=== PATIENT | male | born 1955 | race Caucasian/White ===

== ENCOUNTER 2020-08-25 15:42 | Inpatient (IN) | payer MEDICARE, OTHER ==
[~2020-08-25] VITALS: Ht 190.5 cm; Wt 98.0 kg
--- NOTE | 2020-08-25 15:49 | NUR ---
at bedside for assessment
--- NOTE | 2020-08-25 15:51 | NUR ---
Report given to Asiya, room 139 B
[2020-08-25] MEDS ORDERED: CHOL10005 PO (16:09)
[2020-08-25] MEDS ORDERED: POLY17PO4 PO (16:09)
[2020-08-25] MEDS ORDERED: FOLIC ACID PO (16:09)
[2020-08-25] MEDS ORDERED: SPIR100T5 PO (16:09)
[2020-08-25] MEDS ORDERED: PANT40TA49 PO (16:09)
[2020-08-25] MEDS ORDERED: FINA5TAB11 PO (16:09)
[2020-08-25] MEDS ORDERED: TAMS-3 PO (16:09)
[2020-08-25] MEDS ORDERED: CYAN-51 PO (16:09)
[2020-08-25] MEDS ORDERED: SOTA80TA PO (16:09)
[2020-08-25] MEDS ORDERED: TEMA30CA5 PO (16:09)
[2020-08-25] MEDS ORDERED: LACT10SO3 PO (16:09)
[2020-08-25] MEDS ORDERED: LEVO125T PO (16:09)
[2020-08-25] MEDS ORDERED: RIVA10TA PO (16:09)
[2020-08-25] MEDS ORDERED: FURO-151 PO (16:11)
[2020-08-25] MEDS ORDERED: DEXL60CA3 PO (16:11)
--- NOTE | 2020-08-25 16:29 | NUR ---
Pt. admitted to [facility]HU , under care of Dr. Mccall Belongs List completed and all belongings sent
[2020-08-25 16:30] VITALS: BP 121/79
--- NOTE | 2020-08-25 16:30 | NUR ---
PT ARRIVED TO UNIT ON W/C ACCOMPANIED BY RN. UPON FACE TO FACE EVALUATION, PT IS CALM AND COOPERATIVE, AOX4. PLEASANT AND RESPONSIVE TO ALL QUESTIONS. DENIES SUICIDAL IDEATIONS, STATES IT IS ALL A MISUNDERSTANDING. STATES HE TOOK 6 XANAX TO HELP HIM SLEEP, NOT AN ATTEMPT TO END HIS LIFE. STATES HE IS NOT DEPRESSED AND DOES NOT WANT TO HARM SELF. HE INCLUDED ALCOHOL WITH HIS MEDICATIONS TO "HELP THE EFFECTS" OF THE XANAX. PATIENTS RIGHTS HANDBOOK DELIVERED TO PT. NO AGGRESSIVE OR COMBATIVE BEHAVIOR NOTED. ABLE TO MAKE ALL NEEDS KNOWN.
[2020-08-25] MEDS ORDERED: ACETAMINOPHEN 325 MG TABLET PO PRN (16:45)
[2020-08-25] MEDS ORDERED: TEMAZEPAM 7.5 MG CAPSULE PO PRN (16:45)
[2020-08-25] MEDS ORDERED: MAG HYDROX/AL HYDROX/SIMETH 30 ML LIQUID UDC PO PRN (16:45)
[2020-08-25] MEDS ORDERED: RIVAROXABAN 10 MG TABLET PO SCH (18:00)
[2020-08-25] MEDS: MIRALAX 17 GM POWD.PACK PO SCH (18:14)
[2020-08-25] MEDS: RIVAROXABAN 10 MG TABLET PO SCH (18:15)
[2020-08-25] MEDS: SOTALOL HCL 80 MG TABLET PO SCH (18:15)
--- NOTE | 2020-08-25 19:00 | NUR ---
Patient left walking through the hallway. Alert and oriented times 4. No sign of distress noted. Patient denies SI and or ONEIL. All medications given as ordered. Safety precautions are in place. Will endorse to the oncoming nurse.
[2020-08-25] MEDS ORDERED: LINA145C PO (20:00)
[2020-08-25 20:03] VITALS: BP 114/63
[2020-08-25] MEDS: MAGNESIUM HYDROXIDE 30 ML LIQUID UDC PO PRN (20:42)
[2020-08-25] MEDS: TAMSULOSIN HCL 0.4 MG CAP.SR.24H PO SCH (20:42)
[2020-08-25] MEDS: TEMAZEPAM 7.5 MG CAPSULE PO PRN (20:42)
--- NOTE | 2020-08-25 21:00 | NUR ---
RECEIVED PT ON BED; PLEASANT; C/O CONSTIPATION AND WILL REQUIRE HIS LINZESS; INFORMED SOUND TESTER PATRICIA AND ORDERED IT; PT WILL BE GIVEN MILK OF MAGNESIA FOR NOW; NEEDS ATTENDED.
[2020-08-26] MEDS: LORAZEPAM 0.5 MG TABLET PO PRN ×3 (03:14→23:06)
--- NOTE | 2020-08-26 03:30 | NUR ---
Manjeet complained of being anxious; having SOB and bad dream; ativan PRN given PO.
--- NOTE | 2020-08-26 06:00 | NUR ---
pt swabbed nares for mrsa; urine sent also to lab.
[2020-08-26] MEDS: LEVOTHYROXINE SODIUM 125 MCG TABLET PO SCH (06:15)
[2020-08-26] MEDS: PANTOPRAZOLE SODIUM 40 MG TABLET.DR PO SCH (06:15)
[2020-08-26 06:25] LABS: *BILIRUBIN,URIN NEGATIVE (NEGATIVE); *BLOOD, URINE NEGATIVE (NEGATIVE); *CLARITY,URINE CLEAR (CLEAR); *COLOR,URINE YELLOW (YELLOW); *KETONES,URINE NEGATIVE (NEGATIVE); *UROBILINOGEN,URINE 0.2 E.U./dl (NORMAL); LEUKOCYTE ESTERASE ,URINE NEGATIVE (NEGATIVE); NITRITE, URINE NEGATIVE (NEGATIVE); PH,URINE 7.5 (5.0-8.0); UGLUCOSE NEGATIVE (NEGATIVE)
[2020-08-26 06:54] LABS: BASOPHILS % (AUTO) 0.5 % (0.0-2.0); EOSINOPHILS # (AUTO) 0.1 K/uL (0.0-0.7); EOSINOPHILS % (AUTO) 2.2 % (0.0-7.0); HEMATOCRIT 38.5 % (36.7-47.1); HEMOGLOBIN 13.2 g/dL (12.5-16.3); LYMPHOCYTES # (AUTO) 0.9 K/uL (20.0-40.0); LYMPHOCYTES % (AUTO) 16.3 % (20.5-51.5); MEAN CORPUSCULAR HEMOGLOBIN 32.8 uug (23.8-33.4); MEAN CORPUSCULAR HGB CONC 34 g/dL (32.5-36.3); MEAN CORPUSCULAR VOLUME 95.9 fL (73.0-96.2); MONOCYTES # (AUTO) 0.5 K/uL (2.0-10.0); MONOCYTES % (AUTO) 9.6 % (0.0-11.0); NEUTROPHILS # (AUTO) 3.8 K/uL (1.8-8.9); NEUTROPHILS % (AUTO) 71.4 % (38.5-71.5); PLATELET COUNT (AUTO) 248 K/uL (152-348); RED BLOOD CELL COUNT(AUTO) 4.02 MIL/uL (4.06-5.63); WHITE BLOOD COUNT (AUTO) 5.4 K/uL (3.6-10.2)
--- NOTE | 2020-08-26 06:55 | NUR ---
spoke to pt's caregiver, Veronica regarding Linzess; she will come to the hospital and drop off the medication to security.
[2020-08-26 07:12] LABS: BILIRUBIN,TOTAL 0.8 mg/dL (0.2-1.0); MAGNESIUM 1.9 mg/dL (1.8-2.4); PHOSPHOROUS 3.2 mg/dL (2.5-4.9); POTASSIUM 4.6 mmol/L (3.5-5.1); TOTAL PROTEIN, SERUM 6.4 g/dL (6.4-8.2)
[2020-08-26 07:30] VITALS: BP 123/68
[2020-08-26] MEDS: MIRALAX 17 GM POWD.PACK PO SCH ×2 (08:31→16:48)
[2020-08-26] MEDS: CYANOCOBALAMIN 1,000 MCG TABLET PO SCH (08:32)
[2020-08-26] MEDS: SOTALOL HCL 80 MG TABLET PO SCH ×2 (08:32→16:48)
[2020-08-26] MEDS: FUROSEMIDE 40 MG TABLET PO SCH (08:33)
[2020-08-26] MEDS: CHOLECALCIFEROL 1,000 UNIT TABLET PO SCH (08:33)
[2020-08-26] MEDS: FINASTERIDE 5 MG TABLET PO SCH (08:33)
[2020-08-26] MEDS: FOLIC ACID 1 MG TABLET PO SCH (08:33)
[2020-08-26] MEDS: SPIRONOLACTONE 50 MG TABLET PO SCH (08:34)
[2020-08-26 08:40] LABS: THYROID STIMULATING HORMONE 0.905 mIU/mL (0.358-3.740)
[2020-08-26] MEDS ORDERED: Medication Not On Formulary EA ([Folic Acid] 1 MG) PO SCH (09:00)
[2020-08-26] MEDS ORDERED: SPIRONOLACTONE 100 MG TABLET PO SCH (09:00)
[2020-08-26] MEDS ORDERED: Medication Not On Formulary EA (Cholecalciferol (Vitamin D3) (Vitamin D3) 2 TAB) PO SCH (09:00)
--- NOTE | 2020-08-26 13:04 | NUR ---
Firearms Report: Neon Tube Bender completed and submitted a [employer] firearms report for 5150 grave disability certification. A copy of report has been placed in patient chart.
[2020-08-26] MEDS: LINZESS 290 MCG CAP PO SCH (13:14)
--- NOTE | 2020-08-26 13:59 | NUR ---
Family Contact: This SW contacted patient's caregiver Veronica ([phone]) to gather collateral and discuss treatment plan.
--- NOTE | 2020-08-26 13:59 | NUR ---
Initial Discharge Plan: Patient currently lives at [id number] [place] [address]. Patient's caregiver Veronica ([phone]) is involved in patient's care who takes care of pt everyday. Patient would want to return back home upon discharge. This SW contacted patient's caregiver Veronica ([phone]) to gather collateral and discuss treatment plan. This SW will work with the MD and treatment team to gather information.
--- NOTE | 2020-08-26 14:14 | NUR ---
SW Substance Abuse Intervention: Patient was provided with a brief substance abuse intervention and referred to [facility] ([phone]), [facility] ([phone]), and [facility] ([phone]).
--- NOTE | 2020-08-26 14:51 | NUR ---
Individual Therapy: flavor room worker met with patient for brief counseling and assessed for level of suicidality. flavor room worker assessed for suicidal thoughts, patient denied suicidal thoughts. He expressed that he was "brought here and that he did not intentionally overdose, he just took the medications because he was bored". Patient expressed that he is in a "good mood and has a lot of support at home". He shared that his caregiver helps him at home. SW actively listened and provided emotional support.
[2020-08-26 15:09] VITALS: BP 132/76
[2020-08-26] MEDS: ESCITALOPRAM OXALATE 10 MG TABLET NG SCH (16:42)
[2020-08-26] MEDS: RIVAROXABAN 10 MG TABLET PO SCH (17:15)
[2020-08-26 20:00] VITALS: BP 118/67
[2020-08-26] MEDS: TAMSULOSIN HCL 0.4 MG CAP.SR.24H PO SCH (20:21)
[2020-08-26] MEDS: TEMAZEPAM 7.5 MG CAPSULE PO PRN (21:17)
[2020-08-27] MEDS: LEVOTHYROXINE SODIUM 125 MCG TABLET PO SCH (06:03)
[2020-08-27] MEDS: PANTOPRAZOLE SODIUM 40 MG TABLET.DR PO SCH (06:03)
--- NOTE | 2020-08-27 06:45 | NUR ---
Received Pt pacing the hallway, appearing anxious. A+Ox3 and friendly on approach. Pt reported 8/10 anxiety due to "all of the constant noise and yelling in here, I can't think straight." Pt was reminded his next prn Ativan is due at 2300. Pt denies SI and minimizes his actions prior to admission, and stated, "I just wanted to get some sleep, they twisted my words all around, I wasn't suicidal." Pt admits to "some depression and anxiety" Verbally contracts for safety, compliant with medications, cooperative with care and staff direction. Exhibits flat affect and low mood. VS stable, denies pain. Restoril 7.5mg administered for insomnia with minimal effect. Pt was up throughout the night pacing and frequently requesting benzo medications. Medication education and safety reinforced.
[2020-08-27 07:29] LABS: CREATININE 0.9 mg/dL (0.6-1.3); MAGNESIUM 1.7 mg/dL (1.8-2.4); PHOSPHOROUS 3.8 mg/dL (2.5-4.9); POTASSIUM 4.2 mmol/L (3.5-5.1)
[2020-08-27 07:30] VITALS: BP 126/79
[2020-08-27] MEDS: LORAZEPAM 0.5 MG TABLET PO PRN ×2 (07:38→23:27)
[2020-08-27 08:17] LABS: URIC ACID 3.3 mg/dL (3.5-7.2)
[2020-08-27] MEDS: MIRALAX 17 GM POWD.PACK PO SCH ×2 (08:39→16:56)
[2020-08-27] MEDS: CHOLECALCIFEROL 1,000 UNIT TABLET PO SCH (08:40)
[2020-08-27] MEDS: FUROSEMIDE 40 MG TABLET PO SCH (08:40)
[2020-08-27] MEDS: CYANOCOBALAMIN 1,000 MCG TABLET PO SCH (08:41)
[2020-08-27] MEDS: FOLIC ACID 1 MG TABLET PO SCH (08:41)
[2020-08-27] MEDS: FINASTERIDE 5 MG TABLET PO SCH (08:41)
[2020-08-27] MEDS: ESCITALOPRAM OXALATE 10 MG TABLET NG SCH (08:41)
[2020-08-27] MEDS: SPIRONOLACTONE 50 MG TABLET PO SCH (08:41)
[2020-08-27] MEDS: SOTALOL HCL 80 MG TABLET PO SCH ×2 (08:41→16:56)
[2020-08-27] MEDS: LINZESS 290 MCG CAP PO SCH (11:11)
[2020-08-27] MEDS ORDERED: MAGNESIUM OXIDE 400 MG TABLET PO ONE (12:00)
[2020-08-27 16:00] VITALS: BP 95/61
[2020-08-27] MEDS ORDERED: TEMAZEPAM 7.5 MG CAPSULE PO PRN (16:15)
[2020-08-27] MEDS: RIVAROXABAN 10 MG TABLET PO SCH (18:10)
[2020-08-27] MEDS: TAMSULOSIN HCL 0.4 MG CAP.SR.24H PO SCH (20:12)
[2020-08-27 21:08] VITALS: BP 105/72
[2020-08-28] MEDS: PANTOPRAZOLE SODIUM 40 MG TABLET.DR PO SCH (06:30)
[2020-08-28] MEDS: LEVOTHYROXINE SODIUM 125 MCG TABLET PO SCH (06:30)
[2020-08-28 07:53] VITALS: BP 131/80
[2020-08-28] MEDS: ESCITALOPRAM OXALATE 10 MG TABLET NG SCH (08:02)
[2020-08-28] MEDS: FUROSEMIDE 40 MG TABLET PO SCH (08:02)
[2020-08-28] MEDS: SPIRONOLACTONE 50 MG TABLET PO SCH (08:02)
[2020-08-28] MEDS: SOTALOL HCL 80 MG TABLET PO SCH ×2 (08:02→17:12)
[2020-08-28] MEDS: MIRALAX 17 GM POWD.PACK PO SCH ×2 (08:02→17:12)
[2020-08-28] MEDS: FOLIC ACID 1 MG TABLET PO SCH (08:03)
[2020-08-28] MEDS: FINASTERIDE 5 MG TABLET PO SCH (08:03)
[2020-08-28] MEDS: CYANOCOBALAMIN 1,000 MCG TABLET PO SCH (08:03)
[2020-08-28] MEDS: CHOLECALCIFEROL 1,000 UNIT TABLET PO SCH (08:04)
[2020-08-28 10:53] LABS: CREATININE 1.1 mg/dL (0.6-1.3)
[2020-08-28] MEDS: LINZESS 290 MCG CAP PO SCH (11:27)
--- NOTE | 2020-08-28 15:15 | NUR ---
patient is anxious, guarded, and withdrawn, but is cooperative and redirectable. he appears appropriately dressed in hospital gown. patient denies SI/HI, denies AH/VH, he is minimizing reason for admission and is preoccupied with being discharged. patient provided with education about involuntary hold status and reason for admission. patient is adherent with medication, no adverse reaction noted. patient able to ambulate and perform self care and ADL's independently.
[2020-08-28 16:00] VITALS: BP 123/73
[2020-08-28] MEDS ORDERED: MAGNESIUM OXIDE 400 MG TABLET PO ONE (16:15)
[2020-08-28] MEDS: RIVAROXABAN 10 MG TABLET PO SCH (17:13)
[2020-08-28] MEDS: TAMSULOSIN HCL 0.4 MG CAP.SR.24H PO SCH (20:03)
[2020-08-28] MEDS: LORAZEPAM 0.5 MG TABLET PO PRN (20:17)
[2020-08-28 20:39] VITALS: BP 123/73
[2020-08-29] MEDS: LORAZEPAM 0.5 MG TABLET PO PRN (01:03)
[2020-08-29] MEDS: LEVOTHYROXINE SODIUM 125 MCG TABLET PO SCH (06:02)
[2020-08-29] MEDS: PANTOPRAZOLE SODIUM 40 MG TABLET.DR PO SCH (06:02)
[2020-08-29 07:14] LABS: CREATININE 1.1 mg/dL (0.6-1.3); POTASSIUM 4.3 mmol/L (3.5-5.1)
[2020-08-29 07:30] VITALS: BP 110/69
[2020-08-29] MEDS: SOTALOL HCL 80 MG TABLET PO SCH ×2 (08:52→17:40)
[2020-08-29] MEDS: CYANOCOBALAMIN 1,000 MCG TABLET PO SCH (08:53)
[2020-08-29] MEDS: CHOLECALCIFEROL 1,000 UNIT TABLET PO SCH (08:53)
[2020-08-29] MEDS: FOLIC ACID 1 MG TABLET PO SCH (08:53)
[2020-08-29] MEDS: SPIRONOLACTONE 50 MG TABLET PO SCH (08:54)
[2020-08-29] MEDS: FINASTERIDE 5 MG TABLET PO SCH (08:54)
[2020-08-29] MEDS: ESCITALOPRAM OXALATE 10 MG TABLET NG SCH (08:55)
[2020-08-29] MEDS: FUROSEMIDE 40 MG TABLET PO SCH (08:59)
[2020-08-29] MEDS: LINZESS 290 MCG CAP PO SCH (11:30)
[2020-08-29] MEDS: MIRALAX 17 GM POWD.PACK PO SCH ×2 (11:36→17:43)
--- NOTE | 2020-08-29 11:39 | NUR ---
Gps/Kitchenhand- Had been compliant with his routine am meds. Fluid restrictions observed and in progress, compliant with his fluid restrictions. Sodium 126 today. Showered self ind. after set up, patches of skin bruising noted. Had been redirectable. Veronica (Caregiver ) called wants to know how patient is doing, claimed she stays with patient 24 HR .
--- NOTE | 2020-08-29 14:52 | NUR ---
Individual Therapy: drug worker met with patient for brief counseling and assessed for level of suicidality. drug worker assessed for suicidal thoughts, patient denied suicidal thoughts. Patient expressed that he is "no longer feeling sad and that I need to go home to take care of things at home". This SW helped patient identify someone who can help him while at the hospital. He stated that he has a caregiver and will contact his caregiver to help him with the "things" he needs to take care of at home. This SW actively listened to patient and helped identify a support system. Patient's support system is his caregiver who takes care of him at home.
[2020-08-29 16:00] VITALS: BP 126/79
--- NOTE | 2020-08-29 16:14 | NUR ---
SW Coordination of Care: Patient will follow up with primary doctor Dr. Helga Collazo located at [address] [place] [address], [phone]; ([phone]) on September 04 between 3-5PM doctor office will contact patient and it will be telehealth. Primary doctor will manage the patients psychotropic medications and refer the patient to an outpatient psychiatrist for continued follow-ups. This SW arranged it through [employer] counter attendant.
[2020-08-29] MEDS: RIVAROXABAN 10 MG TABLET PO SCH (17:39)
--- NOTE | 2020-08-29 18:00 | NUR ---
Gps/Stair Builder- Compliant with his fluid restrictions, but verbalized concerns regarding his constipation, reassured, he is on routine miralax . Interacting well with his selected peers.
[2020-08-29] MEDS: TAMSULOSIN HCL 0.4 MG CAP.SR.24H PO SCH (20:19)
[2020-08-29 20:25] VITALS: BP 147/85
[2020-08-29] MEDS: ZOLPIDEM 5 MG TABLET PO PRN ×2 (22:09→23:10)
--- NOTE | 2020-08-29 23:10 | NUR ---
GPS: Pt.still awake at this time despite getting Ambien 5mg PO an hour ago for insomnia. Ambien 5mg (repeat dose) given. Will monitor effectiveness. Pt.getting paranoid and suspicious about his meds. Explained medication efficacy is not guaranteed. Quiet environment provided to facilitate sleep. Kept safe at all times.
[2020-08-30] MEDS: LORAZEPAM 0.5 MG TABLET PO PRN (03:01)
[2020-08-30] MEDS: LEVOTHYROXINE SODIUM 125 MCG TABLET PO SCH (06:31)
[2020-08-30] MEDS: PANTOPRAZOLE SODIUM 40 MG TABLET.DR PO SCH (06:31)
[2020-08-30 07:30] VITALS: BP 127/76
[2020-08-30] MEDS: FINASTERIDE 5 MG TABLET PO SCH (08:20)
[2020-08-30] MEDS: FOLIC ACID 1 MG TABLET PO SCH (08:20)
[2020-08-30] MEDS: SPIRONOLACTONE 50 MG TABLET PO SCH (08:20)
[2020-08-30] MEDS: CHOLECALCIFEROL 1,000 UNIT TABLET PO SCH (08:20)
[2020-08-30] MEDS: MIRALAX 17 GM POWD.PACK PO SCH ×2 (08:21→17:04)
[2020-08-30] MEDS: CYANOCOBALAMIN 1,000 MCG TABLET PO SCH (08:22)
[2020-08-30] MEDS: FUROSEMIDE 40 MG TABLET PO SCH (08:31)
[2020-08-30] MEDS: SOTALOL HCL 80 MG TABLET PO SCH ×2 (08:31→17:04)
[2020-08-30] MEDS ORDERED: ESCITALOPRAM OXALATE 10 MG TABLET PO ONE (09:00)
--- NOTE | 2020-08-30 09:46 | NUR ---
Family Contact: This SW contacted patient's caregiver Veronica ([phone]) and discussed patient's treatment and how patient has been doing.
[2020-08-30] MEDS: LINZESS 290 MCG CAP PO SCH (11:23)
--- NOTE | 2020-08-30 13:25 | NUR ---
[facility] Hearing: Patient had 5250 probable cause hearing today and it was upheld for danger to self.
--- NOTE | 2020-08-30 13:26 | NUR ---
Family Contact: This SW contacted patient's caregiver Veronica ([phone]) and stated that patient's court hearing was today and it was upheld for danger to self. This SW notified patient will continue to be at the hospital for further treatment.
[2020-08-30] MEDS: MAGNESIUM HYDROXIDE 30 ML LIQUID UDC PO PRN (15:28)
[2020-08-30 16:35] VITALS: BP 147/82
[2020-08-30] MEDS: RIVAROXABAN 10 MG TABLET PO SCH (17:04)
[2020-08-30 20:49] VITALS: BP 108/65
[2020-08-30 20:51] VITALS: BP 153/57
[2020-08-30] MEDS: TAMSULOSIN HCL 0.4 MG CAP.SR.24H PO SCH (21:45)
[2020-08-30] MEDS: ZOLPIDEM 5 MG TABLET PO PRN (21:45)
[2020-08-31] MEDS: LORAZEPAM 0.5 MG TABLET PO PRN ×4 (00:18→20:53)
--- NOTE | 2020-08-31 05:29 | NUR ---
Patient slept 5.45 hours. Complaint to treatment.
[2020-08-31] MEDS: PANTOPRAZOLE SODIUM 40 MG TABLET.DR PO SCH (06:13)
[2020-08-31] MEDS: LEVOTHYROXINE SODIUM 125 MCG TABLET PO SCH (06:14)
[2020-08-31] MEDS: MAGNESIUM HYDROXIDE 30 ML LIQUID UDC PO PRN (06:53)
[2020-08-31 07:30] VITALS: BP 124/77
[2020-08-31 08:05] LABS: CREATININE 1.2 mg/dL (0.6-1.3); POTASSIUM 5.1 mmol/L (3.5-5.1)
[2020-08-31 08:06] LABS: BASOPHILS % (AUTO) 0.4 % (0.0-2.0); EOSINOPHILS # (AUTO) 0.1 K/uL (0.0-0.7); EOSINOPHILS % (AUTO) 1.2 % (0.0-7.0); HEMATOCRIT 38.5 % (36.7-47.1); HEMOGLOBIN 13.4 g/dL (12.5-16.3); LYMPHOCYTES # (AUTO) 0.9 K/uL (20.0-40.0); LYMPHOCYTES % (AUTO) 13.6 % (20.5-51.5); MEAN CORPUSCULAR HEMOGLOBIN 32.9 uug (23.8-33.4); MEAN CORPUSCULAR HGB CONC 35 g/dL (32.5-36.3); MEAN CORPUSCULAR VOLUME 94.4 fL (73.0-96.2); MONOCYTES # (AUTO) 0.6 K/uL (2.0-10.0); MONOCYTES % (AUTO) 9.3 % (0.0-11.0); NEUTROPHILS # (AUTO) 5.2 K/uL (1.8-8.9); NEUTROPHILS % (AUTO) 75.5 % (38.5-71.5); PLATELET COUNT (AUTO) 276 K/uL (152-348); RED BLOOD CELL COUNT(AUTO) 4.08 MIL/uL (4.06-5.63); WHITE BLOOD COUNT (AUTO) 6.9 K/uL (3.6-10.2)
[2020-08-31] MEDS: FOLIC ACID 1 MG TABLET PO SCH (08:38)
[2020-08-31] MEDS: CHOLECALCIFEROL 1,000 UNIT TABLET PO SCH (08:42)
[2020-08-31] MEDS: SPIRONOLACTONE 50 MG TABLET PO SCH (08:42)
[2020-08-31] MEDS: CYANOCOBALAMIN 1,000 MCG TABLET PO SCH (08:44)
[2020-08-31] MEDS: MIRALAX 17 GM POWD.PACK PO SCH ×2 (08:44→17:30)
[2020-08-31] MEDS: FINASTERIDE 5 MG TABLET PO SCH (08:44)
[2020-08-31] MEDS: SOTALOL HCL 80 MG TABLET PO SCH ×2 (08:59→17:25)
[2020-08-31] MEDS ORDERED: ESCITALOPRAM OXALATE 10 MG TABLET PO SCH ×2 (09:00→14:55)
[2020-08-31] MEDS: FUROSEMIDE 40 MG TABLET PO SCH (09:00)
[2020-08-31] MEDS ORDERED: MINERAL OIL FLEET ENEMA 133 ML BOTTLE RC ONE (11:15)
[2020-08-31] MEDS: LINZESS 290 MCG CAP PO SCH (11:23)
[2020-08-31] MEDS: SODIUM CHLORIDE 1,000 MG TABLET PO SCH ×2 (13:47→17:24)
[2020-08-31 15:17] VITALS: BP 100/68
[2020-08-31] MEDS: RIVAROXABAN 10 MG TABLET PO SCH (18:36)
[2020-08-31 20:00] VITALS: BP 111/63
[2020-08-31] MEDS: TAMSULOSIN HCL 0.4 MG CAP.SR.24H PO SCH (20:44)
[2020-08-31] MEDS: ZOLPIDEM 5 MG TABLET PO PRN (22:17)
[2020-09-01] MEDS: LORAZEPAM 0.5 MG TABLET PO PRN ×5 (01:14→16:29)
[2020-09-01] MEDS: LEVOTHYROXINE SODIUM 125 MCG TABLET PO SCH (06:26)
[2020-09-01] MEDS: PANTOPRAZOLE SODIUM 40 MG TABLET.DR PO SCH (06:26)
[2020-09-01 06:57] LABS: BASOPHILS % (AUTO) 0.7 % (0.0-2.0); EOSINOPHILS # (AUTO) 0.1 K/uL (0.0-0.7); EOSINOPHILS % (AUTO) 1.5 % (0.0-7.0); HEMATOCRIT 37.3 % (36.7-47.1); LYMPHOCYTES # (AUTO) 1.2 K/uL (20.0-40.0); LYMPHOCYTES % (AUTO) 17.2 % (20.5-51.5); MEAN CORPUSCULAR HGB CONC 35 g/dL (32.5-36.3); MEAN CORPUSCULAR VOLUME 94.5 fL (73.0-96.2); MONOCYTES # (AUTO) 0.7 K/uL (2.0-10.0); MONOCYTES % (AUTO) 10.1 % (0.0-11.0); NEUTROPHILS # (AUTO) 5.1 K/uL (1.8-8.9); NEUTROPHILS % (AUTO) 70.5 % (38.5-71.5); PLATELET COUNT (AUTO) 275 K/uL (152-348); RED BLOOD CELL COUNT(AUTO) 3.95 MIL/uL (4.06-5.63); WHITE BLOOD COUNT (AUTO) 7.2 K/uL (3.6-10.2)
--- NOTE | 2020-09-01 07:07 | NUR ---
patient slept for approx. 8 hrs through the night. Denied SI. able to verbally CFS.
[2020-09-01 07:18] LABS: CREATININE 1.1 mg/dL (0.6-1.3); POTASSIUM 4.5 mmol/L (3.5-5.1)
[2020-09-01 07:30] VITALS: BP 106/63
[2020-09-01] MEDS: ESCITALOPRAM OXALATE 10 MG TABLET NG SCH ×2 (09:00→10:35)
[2020-09-01] MEDS: CHOLECALCIFEROL 1,000 UNIT TABLET PO SCH (09:13)
[2020-09-01] MEDS: CYANOCOBALAMIN 1,000 MCG TABLET PO SCH (09:13)
[2020-09-01] MEDS: FINASTERIDE 5 MG TABLET PO SCH (09:13)
[2020-09-01] MEDS: FUROSEMIDE 40 MG TABLET PO SCH (09:13)
[2020-09-01] MEDS: SPIRONOLACTONE 50 MG TABLET PO SCH (09:14)
[2020-09-01] MEDS: SODIUM CHLORIDE 1,000 MG TABLET PO SCH ×3 (09:15→21:03)
[2020-09-01] MEDS: SOTALOL HCL 80 MG TABLET PO SCH ×2 (09:15→16:08)
[2020-09-01] MEDS: MIRALAX 17 GM POWD.PACK PO SCH ×2 (09:15→16:08)
[2020-09-01] MEDS: FOLIC ACID 1 MG TABLET PO SCH (09:15)
[2020-09-01] MEDS: LINZESS 290 MCG CAP PO SCH ×2 (11:30→16:07)
[2020-09-01 16:00] VITALS: BP 114/69
[2020-09-01] MEDS: RIVAROXABAN 10 MG TABLET PO SCH (16:14)
[2020-09-01 20:10] VITALS: BP 106/64
[2020-09-01] MEDS: TAMSULOSIN HCL 0.4 MG CAP.SR.24H PO SCH (21:03)
[2020-09-01] MEDS: ZOLPIDEM 5 MG TABLET PO PRN (23:20)
[2020-09-02] MEDS: LORAZEPAM 0.5 MG TABLET PO PRN ×4 (03:01→20:17)
[2020-09-02] MEDS: MAGNESIUM HYDROXIDE 30 ML LIQUID UDC PO PRN (05:12)
[2020-09-02] MEDS: LEVOTHYROXINE SODIUM 125 MCG TABLET PO SCH (06:40)
[2020-09-02] MEDS: PANTOPRAZOLE SODIUM 40 MG TABLET.DR PO SCH (06:40)
[2020-09-02] MEDS: SODIUM CHLORIDE 1,000 MG TABLET PO SCH ×3 (06:40→21:18)
[2020-09-02 06:57] LABS: BASOPHILS % (AUTO) 0.6 % (0.0-2.0); EOSINOPHILS # (AUTO) 0.1 K/uL (0.0-0.7); EOSINOPHILS % (AUTO) 1.9 % (0.0-7.0); HEMATOCRIT 36.1 % (36.7-47.1); HEMOGLOBIN 12.7 g/dL (12.5-16.3); LYMPHOCYTES # (AUTO) 1.1 K/uL (20.0-40.0); LYMPHOCYTES % (AUTO) 21.1 % (20.5-51.5); MEAN CORPUSCULAR HEMOGLOBIN 33.4 uug (23.8-33.4); MEAN CORPUSCULAR HGB CONC 35 g/dL (32.5-36.3); MEAN CORPUSCULAR VOLUME 94.9 fL (73.0-96.2); MONOCYTES # (AUTO) 0.5 K/uL (2.0-10.0); MONOCYTES % (AUTO) 9.2 % (0.0-11.0); NEUTROPHILS # (AUTO) 3.4 K/uL (1.8-8.9); NEUTROPHILS % (AUTO) 67.2 % (38.5-71.5); PLATELET COUNT (AUTO) 256 K/uL (152-348)
[2020-09-02 07:15] LABS: MAGNESIUM 2.5 mg/dL (1.8-2.4); PHOSPHOROUS 3.7 mg/dL (2.5-4.9); POTASSIUM 4.4 mmol/L (3.5-5.1)
[2020-09-02 07:30] VITALS: BP 128/81
[2020-09-02] MEDS: FOLIC ACID 1 MG TABLET PO SCH (08:45)
[2020-09-02] MEDS: ESCITALOPRAM OXALATE 10 MG TABLET PO SCH (08:45)
[2020-09-02] MEDS: FINASTERIDE 5 MG TABLET PO SCH (08:45)
[2020-09-02] MEDS: CHOLECALCIFEROL 1,000 UNIT TABLET PO SCH (08:45)
[2020-09-02] MEDS: CYANOCOBALAMIN 1,000 MCG TABLET PO SCH (08:45)
[2020-09-02] MEDS: SPIRONOLACTONE 50 MG TABLET PO SCH (08:46)
[2020-09-02] MEDS: MIRALAX 17 GM POWD.PACK PO SCH ×2 (08:47→16:22)
[2020-09-02] MEDS: SOTALOL HCL 80 MG TABLET PO SCH ×2 (08:47→16:22)
[2020-09-02] MEDS: FUROSEMIDE 40 MG TABLET PO SCH (08:55)
--- NOTE | 2020-09-02 10:55 | NUR ---
Individual Therapy: automotive tire worker met with patient for brief counseling and assessed for level of suicidality. automotive tire worker assessed for suicidal thoughts, patient denied suicidal thoughts. Patient stated that he is no longer feeling suicidal or having any thoughts. He stated he wants to go home and has support at home. Patient expressed that he has a caregiver who helps him and he has a best friend who is also involved in his care. SW actively listened and expressed if he is feeling suicidal to approach staff or charge nurse.
[2020-09-02] MEDS ORDERED: LINZESS 290 MCG CAP PO SCH (11:43)
[2020-09-02] MEDS: LINZESS 290 MCG CAP PO SCH (11:49)
--- NOTE | 2020-09-02 13:17 | NUR ---
SW Coordination of Care: This SW spoke with Terry to reschedule patient's appointment date. Patient will follow up with primary doctor Dr. Helga Collazo located at [address] [place] [address], [phone]; ([phone]) on September 11 2-3PM via telehealth and will be referred to a psychiatrist.
[2020-09-02 15:29] VITALS: BP 121/63
[2020-09-02] MEDS: RIVAROXABAN 10 MG TABLET PO SCH (17:02)
--- NOTE | 2020-09-02 20:18 | NUR ---
patient c/o anxiety. ativan 0.5 mg po given.
[2020-09-02] MEDS: TAMSULOSIN HCL 0.4 MG CAP.SR.24H PO SCH (20:19)
[2020-09-02 20:44] VITALS: BP 118/64
--- NOTE | 2020-09-02 21:18 | NUR ---
patient stated i am feeling better now. prn effective for anxiety,
[2020-09-02] MEDS: ZOLPIDEM 5 MG TABLET PO PRN (22:03)
[2020-09-03] MEDS: ZOLPIDEM 5 MG TABLET PO PRN ×2 (01:10→22:25)
--- NOTE | 2020-09-03 05:58 | NUR ---
GPS: Remain calm and cooperative with meds and care. ativan x1 given and effective. slept 5 hrs through the night. Complaint to treatment.
[2020-09-03] MEDS: SODIUM CHLORIDE 1,000 MG TABLET PO SCH ×3 (06:26→20:54)
[2020-09-03] MEDS: PANTOPRAZOLE SODIUM 40 MG TABLET.DR PO SCH (06:27)
[2020-09-03] MEDS: LEVOTHYROXINE SODIUM 125 MCG TABLET PO SCH (06:27)
[2020-09-03] MEDS: MIRALAX 17 GM POWD.PACK PO SCH ×2 (06:39→16:25)
[2020-09-03 07:30] VITALS: BP 141/72
[2020-09-03] MEDS: SPIRONOLACTONE 50 MG TABLET PO SCH (08:06)
[2020-09-03] MEDS: ESCITALOPRAM OXALATE 10 MG TABLET PO SCH (08:07)
[2020-09-03] MEDS: CYANOCOBALAMIN 1,000 MCG TABLET PO SCH (08:07)
[2020-09-03] MEDS: FOLIC ACID 1 MG TABLET PO SCH (08:07)
[2020-09-03] MEDS: CHOLECALCIFEROL 1,000 UNIT TABLET PO SCH (08:07)
[2020-09-03] MEDS: FINASTERIDE 5 MG TABLET PO SCH (08:07)
[2020-09-03] MEDS: SOTALOL HCL 80 MG TABLET PO SCH ×2 (08:07→16:04)
[2020-09-03] MEDS: FUROSEMIDE 40 MG TABLET PO SCH (08:07)
[2020-09-03] MEDS: LORAZEPAM 0.5 MG TABLET PO PRN ×3 (08:17→20:01)
[2020-09-03] MEDS: MAGNESIUM HYDROXIDE 30 ML LIQUID UDC PO PRN (08:17)
[2020-09-03] MEDS ORDERED: BISACODYL 5 MG TABLET.DR PO ONE (09:30)
[2020-09-03] MEDS: LINZESS 290 MCG CAP PO SCH (11:51)
[2020-09-03 16:00] VITALS: BP 118/69
[2020-09-03] MEDS: RIVAROXABAN 10 MG TABLET PO SCH (17:14)
[2020-09-03] MEDS: TAMSULOSIN HCL 0.4 MG CAP.SR.24H PO SCH (20:01)
[2020-09-03 20:46] VITALS: BP 112/60
[2020-09-04] MEDS: MAGNESIUM HYDROXIDE 30 ML LIQUID UDC PO PRN ×2 (02:55→20:04)
[2020-09-04] MEDS: LORAZEPAM 0.5 MG TABLET PO PRN ×3 (02:55→18:07)
[2020-09-04] MEDS: SODIUM CHLORIDE 1,000 MG TABLET PO SCH ×3 (06:00→22:00)
--- NOTE | 2020-09-04 06:04 | NUR ---
Received patient last night in room. Anxious and wondering when his next Ativan was due. Patient was also fixated on his bowel movements and proceeded to ask for laxatives or any medications to produce a BM. Communications Planner had a meaningful conversation in which patient denied having SI and stated he is looking forward to going home this . Total sleep hours were 6.00 last night. Continuing to monitor for safety. Patient refused the Sodium pill prescribed , last night and this am. Otherwise, patient is medication compliant. No acute distress noted at this time.
[2020-09-04] MEDS: PANTOPRAZOLE SODIUM 40 MG TABLET.DR PO SCH (06:35)
[2020-09-04] MEDS: LEVOTHYROXINE SODIUM 125 MCG TABLET PO SCH (06:35)
[2020-09-04 07:30] VITALS: BP 120/76
[2020-09-04] MEDS: SPIRONOLACTONE 50 MG TABLET PO SCH (08:45)
[2020-09-04] MEDS: FINASTERIDE 5 MG TABLET PO SCH (08:45)
[2020-09-04] MEDS: SOTALOL HCL 80 MG TABLET PO SCH ×2 (08:46→16:39)
[2020-09-04] MEDS: FUROSEMIDE 40 MG TABLET PO SCH (08:47)
[2020-09-04] MEDS: ESCITALOPRAM OXALATE 10 MG TABLET PO SCH (08:47)
[2020-09-04] MEDS: CHOLECALCIFEROL 1,000 UNIT TABLET PO SCH (08:47)
[2020-09-04] MEDS: CYANOCOBALAMIN 1,000 MCG TABLET PO SCH (08:47)
[2020-09-04] MEDS: FOLIC ACID 1 MG TABLET PO SCH (08:47)
[2020-09-04] MEDS: MIRALAX 17 GM POWD.PACK PO SCH ×2 (08:48→16:41)
[2020-09-04] MEDS: LINZESS 290 MCG CAP PO SCH (12:28)
[2020-09-04 14:23] VITALS: BP 116/63
[2020-09-04 16:00] VITALS: BP 118/72
[2020-09-04] MEDS: RIVAROXABAN 10 MG TABLET PO SCH (16:40)
[2020-09-04] MEDS: TAMSULOSIN HCL 0.4 MG CAP.SR.24H PO SCH (20:05)
[2020-09-04 21:15] VITALS: BP 102/58
--- NOTE | 2020-09-04 21:26 | NUR ---
PATIENT RECEIVED IN AND OUT OF ACTIVITIES ROOM AND WALKING THE HALLWAY. PATIENT IS COMPLAINT WITH MEDICATION. PATIENT DENIES SI PATIETN IS ABLE TO MAKE NEEDS KNOWN.SAFE ENVIRONMENT PROVIDED, FREQUENT ROUNDING, AND CLUTTER FREE ENVIRONMENT. BED IN LOWEST POSITION AN BED LOCKED. NO AGGRESSIVE OR COMBATIVE BEHAVIOR NOTED. MOM WAS GIVEN ORDERED.
[2020-09-04] MEDS: ZOLPIDEM 5 MG TABLET PO PRN (23:14)
[2020-09-05] MEDS: ZOLPIDEM 5 MG TABLET PO PRN (01:11)
[2020-09-05] MEDS: SODIUM CHLORIDE 1,000 MG TABLET PO SCH (06:00)
[2020-09-05] MEDS: PANTOPRAZOLE SODIUM 40 MG TABLET.DR PO SCH (06:20)
[2020-09-05] MEDS: LEVOTHYROXINE SODIUM 125 MCG TABLET PO SCH (06:20)
[2020-09-05 07:30] VITALS: BP 120/71
--- NOTE | 2020-09-05 08:20 | NUR ---
SW Discharge Note: [place] at [address] [place] [address]. Patient's caregiver Veronica ([phone]) is involved in patient's care. Patients caregiver Veronica will fern picker patient at 10:30AM. Patient does not have any family at the moment. Patient is aware and agreeable to patients discharge. Upon discharge, patient appear to be calm, cooperative and happy to be going home. Patient denies suicidal and homicidal ideation. Patient is alert and oriented x3. Patient will follow up with primary doctor Dr. Helga Collazo located at [address] [place] [address], [phone]; [phone]) on September 11 2-3PM via telehealth. Primary doctor will manage the patients psychotropic medications and refer the patient to an outpatient psychiatrist for continued follow-ups. Patient was provided referrals to the following substance abuse programs for alcohol use: [facility] ([phone]); [facility] [address] [place] [address] ([phone]); [facility] [address] [facility] [address] ([phone]); [facility] ([phone]); [facility] ([phone]); [facility] ([phone]); [facility] ([phone]). Patient presented with euthymic mood and congruent affect.
[2020-09-05] MEDS: FUROSEMIDE 40 MG TABLET PO SCH (09:00)
[2020-09-05 09:09] VITALS: BP 120/71
[2020-09-05] MEDS: SOTALOL HCL 80 MG TABLET PO SCH (09:09)
[2020-09-05] MEDS: ESCITALOPRAM OXALATE 10 MG TABLET PO SCH (09:09)
[2020-09-05] MEDS: FINASTERIDE 5 MG TABLET PO SCH (09:10)
[2020-09-05] MEDS: CHOLECALCIFEROL 1,000 UNIT TABLET PO SCH (09:10)
[2020-09-05] MEDS: SPIRONOLACTONE 50 MG TABLET PO SCH (09:10)
[2020-09-05] MEDS: CYANOCOBALAMIN 1,000 MCG TABLET PO SCH (09:10)
[2020-09-05] MEDS: FOLIC ACID 1 MG TABLET PO SCH (09:10)
[2020-09-05] MEDS: LORAZEPAM 0.5 MG TABLET PO PRN (09:20)
[2020-09-05] MEDS: MIRALAX 17 GM POWD.PACK PO SCH (09:22)
--- NOTE | 2020-09-05 10:35 | NUR ---
Gps/Arthur- [facility] in to shrimp picker patient, will provide transportation. Reviewed medications/prescriptions, diet, skin care, safety, follow up with his primary medical Doctor, able to contract for safety, denies S.I. no H.I. All belongings given back to patient, discharged in good spirit, accompanied by her Caregiver Karyna, no complaints noted, both verbalized understanding of the discharge instructions .Discharged via private car.
--- NOTE | 2020-09-05 10:37 | NUR ---
CALLED IN PRESCRIPTION TO [facility] , SPOKE WITH SOLITARIO, PATIENT AWARE
== END 2020-09-05 10:40 | disposition home or self-care (01) | DRG 885 ==
LOC: ER 15:42 → GPS 16:07
PROVIDERS: ADMIT Psychiatry & Neurology Psychiatry; ATTEND Nurse Practitioner Acute Care
DX: F33.2 Major depressive disorder, recurrent severe without psychotic features (principal); E22.2 Syndrome of inappropriate secretion of antidiuretic hormone; F23 Brief psychotic disorder; T42.4X2D Poisoning by benzodiazepines, intentional self-harm, subsequent encounter; T51.0X2D Toxic effect of ethanol, intentional self-harm, subsequent encounter; E03.9 Hypothyroidism, unspecified; Z79.890 Hormone replacement therapy; E86.1 Hypovolemia; G47.00 Insomnia, unspecified; I25.10 Atherosclerotic heart disease of native coronary artery without angina pectoris; K21.9 Gastro-esophageal reflux disease without esophagitis; K59.00 Constipation, unspecified; N40.0 Benign prostatic hyperplasia without lower urinary tract symptoms; Z95.0 Presence of cardiac pacemaker; R73.9 Hyperglycemia, unspecified; Z72.89 Other problems related to lifestyle
CPT/HCPCS: 36415; 70030-TC; 71045; 83735; 84100; 84300; 84443; 84550; 85025; 87086; 93005